=== PATIENT | female | born 1960 ===

== ENCOUNTER 2020-02-01 13:32 | Outpatient (REF) | payer OTHER, SELFPAY ==
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
== END 2020-02-01 13:33 | disposition home or self-care (01) ==
LOC: HO.SH 13:32
PROVIDERS: PCP Physician Assistant; Visit Provider Physician Assistant
DX: H90.3 Sensorineural hearing loss, bilateral (principal)
CPT/HCPCS: 92552; 92567; 92587